=== PATIENT | female | born 1960 | race Caucasian/White ===

== ENCOUNTER 2018-11-22 06:51 | Day surgery (SDC) | payer OTHER ==
[2018-11-21 11:05] VITALS: Ht 162.6 cm; Wt 125.5 kg
[~2018-11-22] VITALS: Ht 162.6 cm; Wt 125.5 kg
[2018-11-22] VITALS (11 sets, daily range): BP systolic 111–166; BP diastolic 53–69; PULSE 70–103; RESP 11–21
[~2018-11-22 06:51] MED LIST: LACTATED RINGER'S 1,000 ML IV* SCH
[2018-11-22] MEDS ORDERED: HYDR25TA6 PO (07:20)
[2018-11-22] MEDS ORDERED: OMEP20CA16 PO (07:20)
[2018-11-22] MEDS ORDERED: IBUP-1545 PO (07:21)
[2018-11-22] MEDS ORDERED: ACETAMINOPHEN 500 MG TAB PO ONE (08:00)
--- NOTE | 2018-11-22 08:19 | HPN ---
Date/Time of Note Date/Time of Note DATE: 11/22/18 TIME: 08:19 Interval H&P Admission Note Pt. seen H&P reviewed: No system changes REBEKAH COX MD Nov 22, 2018 08:19
--- NOTE | 2018-11-22 08:45 | PREAC ---
Date/Time of Note Date/Time of Note DATE: 11/22/18 TIME: 08:44 Anesthesia Eval and Record Evaluation Time Pre-Procedure Interview DATE: 11/22/18 TIME: 08:44 Age 58 Sex female NPO: 8 hrs Preoperative diagnosis abnormal bleeding Planned procedure hysteroscopy d&c Past Medical History Past Medical History: Includes Cardio: HTN Musculoskeletal: Osteoarthritis GI: Morbid obesity Surgery & Anesthesia Issues No known issue Meds Anticoagulation: No Beta Del within 24 hr: No Reason Beta Del not given: Pt. not on B-Del Reported Medications Ibuprofen* (Ibuprofen*) 800 Mg Tab, 800 MG PO DAILY PRN for PAIN, TAB 11/22/18 Omeprazole* (Omeprazole*) 20 Mg Capsule.dr, 20 MG PO AC BREAKFAST, #30 CAP 11/22/18 Hydrochlorothiazide* (Hydrochlorothiazide*) 25 Mg Tab, 25 MG PO DAILY, #30 TAB 11/22/18 Current Medications Lactated Ringer's 1,000 ml @ 125 mls/hr Q8H IV* ; Start 11/22/18 at 06:00; Stop 11/22/18 at 13:59 Meds reviewed: Yes Allergies Coded Allergies: No Known Allergy (Unverified , 10/31/15) Allergies Reviewed: Yes Labs/Studies Labs Reviewed: Reviewed by anesthesiologist test: N/A Pre-procedure Exam Airway: Adequate mouth opening, Adequate thyromental dist Mallampati: Mallampati III Teeth: Normal (multiple missing molars) Lung: Normal Heart: Normal ASA Physical Status ASA physical status: 3 Emergency: None Planned Anesthetic General/MAC: ETT Pre-operative Attestations Prior to commencing anesthesia and surgery, the patient was re-evaluated, there was verification of: *The patient's identity *The results of appropriate recent lab work and preoperative vital signs *The above evaluation not changing prior to induction *Anesthetic plan, risk benefits, alternative and complications discussed with patient/family; questions answered; patient/family understands, accepts and wishes to proceed. CRUZ MCLEAN Nov 22, 2018 08:45
[2018-11-22] MEDS ORDERED: PROPOFOL 40 ML ONE (08:47)
[2018-11-22] MEDS ORDERED: ROCURONIUM 50 MG INJ ONE (08:47)
[2018-11-22] MEDS ORDERED: FAMOTIDINE 20 MG INJ ONE (08:47)
[2018-11-22] MEDS ORDERED: LIDOCAINE 2% (SDV) 5 ML INJ ONE (08:47)
[2018-11-22] MEDS ORDERED: ONDANSETRON 4 MG INJ ONE (08:47)
[2018-11-22] MEDS ORDERED: FENTAnyl 50 MCG/ML VIAL ONE (08:47)
[2018-11-22] MEDS ORDERED: CEFAZOLIN 1 GM INJ ONE ×2 (08:47→09:13)
[2018-11-22] MEDS ORDERED: MIDAZOLAM 1 MG/ML 2 ML INJ ONE (08:47)
[2018-11-22] MEDS ORDERED: SUCCINYLCHOLINE CHLORIDE 100 MG/5 ML SYG IV ONE (08:47)
[2018-11-22] MEDS ORDERED: DIPHENHYDRAMINE 50 MG INJ IV PRN (09:00)
[2018-11-22] MEDS ORDERED: HYDROmorphONE 1 MG/5 ML IV SYRINGE IV PRN (09:00)
[2018-11-22] MEDS ORDERED: OXYCODONE/ACETAMINOPHEN (5/325) TAB PO PRN ×2 (09:00)
[2018-11-22] MEDS ORDERED: ONDANSETRON 4 MG INJ IV PRN (09:00)
[2018-11-22] MEDS ORDERED: ALBUTEROL 0.083% (NEB) 2.5 MG/3 ML AMP HHN PRN (09:00)
[2018-11-22] MEDS ORDERED: morphine (1 MG/ML) 10ML SYRINGE IV PRN ×2 (09:00)
[2018-11-22] MEDS ORDERED: FENTAnyl 50 MCG/ML VIAL IV PRN ×2 (09:00)
[2018-11-22] MEDS ORDERED: LABETALOL HCL 20MG INJ IV PRN (09:00)
[2018-11-22] MEDS ORDERED: MEPERIDINE 25 MG INJ IV PRN (09:00)
[2018-11-22] MEDS ORDERED: METOCLOPRAMIDE 10 MG INJ ONE (09:13)
[2018-11-22] MEDS ORDERED: KETOROLAC 30 MG INJ ONE (09:52)
--- NOTE | 2018-11-22 10:03 | SIPON ---
Date/Time of Note Date/Time of Note DATE: 11/22/18 TIME: 09:59 Operative Report Preoperative Diagnosis postmenopausal bleeding prominent endometrium Postoperative Diagnosis polypoid thickened endometrium Operation/Procedure Performed ECC Hysteroscopic endometrial shaving Surgeon see signature line clinical project assistant Albino from [employer] Second assist: A Anesthesia: general Estimated blood loss: 0 - 10 ml's Transfusion Required none Specimen ECC EMC Grafts/Implants none Complications none REBEKAH COX MD Nov 22, 2018 10:03
--- NOTE | 2018-11-22 10:05 | PAC ---
Date/Time of Note Date/Time of Note DATE: 11/22/18 TIME: 10:03 Post-Anesthesia Notes Post-Anesthesia Note Last documented vital signs @0958 bp166/64, 99%, 77hr, 18rr, 98.3 temp Activity: WNL Respiratory function: WNL Cardiovascular function: WNL Mental status: Baseline Pain reasonably controlled: Yes Hydration appropriate: Yes Nausea/Vomiting absent: Yes CRUZ MCLEAN Nov 22, 2018 10:05
--- NOTE | 2018-11-22 10:05 | PD.PPDC ---
ROADS SUPERINTENDENT Discharge Instruction Diagnosis [id number] Final Diagnosis: Arkna3s Postmenopausal bleeding, see paathologic report polypoid prominent endomet Condition [id number] Patient Condition: Qjcus1h Stable Diet Kusik1Fk Diet: Wjxki0d Resume Regular Diet Activity/Restrictions [id number] Activity: [id number] May Shower Sdjam6Gm Restrictions: [id number] No Sexual Activity Nothing in the Vagina No [place] No Tampons, douche Follow-up Follow-up with Physician: 2, Week/Weeks Return to clinic for [id number] FILM PRINTER Instructions: Yohdp7n Fever greater than 101 Chills Worsening abdominal pain Excessive Vaginal Bleeding More than 2 pads per hour Unable to tolerate diet REBEKAH COX MD Nov 22, 2018 10:05
[2018-11-22] MEDS: HYDROmorphONE 1 MG/5 ML IV SYRINGE IV PRN ×2 (10:14→10:25)
--- NOTE | 2018-11-22 10:35 | OPR ---
DATE OF OPERATION: 11/22/2018 PREOPERATIVE DIAGNOSES: Postmenopausal bleeding, prominent endometrium. POSTOPERATIVE DIAGNOSES: Postmenopausal bleeding, prominent endometrium. Polyploid thickened endome trium. See pathological report. OPERATION PERFORMED: Endocervical curettage, and the hysteroscopic endometrial shaving. ANESTHESIA: General. ANESTHESIOLOGIST: Dr. Neal. COLOR PRINTER OPERATOR: Albino from the [employer]. SECOND COLOR PRINTER OPERATOR: Yury VasSol. ESTIMATED BLOOD LOSS: Less than 10 mL. PROCEDURE: Under proper induction of general anesthesia, the patient was placed in the dorsal lithot tami position with a Cortez stirrup. External genitalia revealed heavy mons with protruding labia and the bimanual examination was inadequate due to the body habitus, but uterus was prolapse to first deg ree, and the weighted speculum introduced, cervix identified, which appeared to be in early parous. The patient had 3 C-sections and no vaginal delivery. Anterior lip of which was clear. Anterior lip of the cervix was grasped with single tooth tenaculum. Endocervical curettage was done, which was s tenotic and had to be dilated with Lorena first and then cavity was sounded, which was 7 cm in depth a nd the os was dilated up to 6 and hysteroscope, which was prepared in usual fashion was introduced wi th inflow and outflow open 45-degree, and the pressure was comparable with a mean arterial pressure. The cavity was visualized from the endocervical canal through the fundus, which was visualized on juan th ostium and picture was taken intermittently. Especially on the left lateral and anterior low segm ent area there was polyploid change and of the endometrium. After taking pictures and the shaver was introduced. The entire cavity was shaved. Unfortunately picture was not taken. Entire endometrium was shaved and satisfactory. All instruments were removed from the operative field. The patient wi thstood procedure well except a couple of blocking that head to be inserted of instrument again. The hysteroscope was pushed out and head to be inserted. The patient withstood the procedure well and w as sent to the recovery room in stable condition. Estimated blood loss was less than 10 mL. All the sponge count and instrument count was correct. Dictated By: MARLA DEL VALLE/KOLBY Conf#: [id number] DID#: [id number] CC: BROOKE GUTIÉRREZ MD;*End*
== END 2018-11-22 11:40 | disposition home or self-care (01) ==
LOC: SDS 06:51
PROVIDERS: ATTEND Obstetrics & Gynecology
DX: C54.1 Malignant neoplasm of endometrium (principal); I10 Essential (primary) hypertension
CPT/HCPCS: 58558; 88305; J0690; J1170; J1885; J2250; J2405; J2765; J3010